=== PATIENT | female | born 1995 | race Caucasian/White ===

== ENCOUNTER 2022-06-15 11:01 | Inpatient (IN) | payer BC ==
[~2022-06-15 11:01] MED LIST: Bupivacaine 0.25% HCL 30 ML VIAL ONE
[2022-06-15] MEDS ORDERED: Ibuprofen 800 MG TAB PO PRN (11:20)
[2022-06-15] MEDS ORDERED: Methylergonovine 0.2 MG/ML VIAL IM PRN (11:20)
[2022-06-15] MEDS ORDERED: Ondansetron PF 4 MG/2 ML Vial IVP PRN ×3 (11:20→17:35)
[2022-06-15] MEDS ORDERED: Diphenoxylate HCl/Atropine Tablet PO PRN (11:20)
[2022-06-15] MEDS ORDERED: Lidocaine 1% (PF) 30 ML VIAL SC PRN (11:20)
[2022-06-15] MEDS ORDERED: Promethazine HCl 25 MG/ML VIAL IM PRN ×2 (11:20→13:58)
[2022-06-15] MEDS ORDERED: Acetaminophen 500 MG TAB PO PRN (11:20)
[2022-06-15] MEDS ORDERED: Butorphanol Tartrate 1 MG/ML VIAL SLOW IVP PRN (11:20)
[2022-06-15] MEDS ORDERED: Misoprostol 200 MCG TAB PR PRN (11:20)
[2022-06-15] MEDS ORDERED: hydrALAZINE 20 MG/ML VIAL SLOW IVP PRN ×2 (11:20→17:35)
[2022-06-15] MEDS ORDERED: HYDROcodone/Acetaminophen 5/325 mg Tablet PO PRN ×3 (11:20→17:35)
[2022-06-15] MEDS ORDERED: Carboprost 250 MCG/ML AMP IM PRN (11:20)
[2022-06-15] MEDS ORDERED: NS w/ Oxytocin 30 units 500 ML IV SCH ×2 (11:30)
[2022-06-15] MEDS ORDERED: Lactated Ringer's 1,000 ML IV SCH (11:30)
[2022-06-15 12:16] LABS: Hemoglobin 11.1 g/dL (12.0-15.5); Mean Corpuscular HGB CONC 33.5 g/dL (32.0-36.0); Mean Corpuscular Hemoglobin 26.2 pg (27.0-33.0); Mean Corpuscular Volume 78.3 fl (81.6-98.3); Mean Platelet Volume 12.3 fl (7.4-10.4); Platelet Count 258 10x3/uL (150-450); Red Blood Cell (RBC) Count 4.23 10x6/uL (3.90-5.03); White Blood Cell (WBC) Count 7.8 10x3/uL (3.5-10.5)
[2022-06-15 12:41] LABS: HBSAg Index 0.16 S/CO (0-0.99); Hep B Surf Ag Non-Reactive S/CO (NonReactive)
[2022-06-15 12:43] VITALS: BMI 29.9
[2022-06-15 12:43] LABS: Syphilis Antibody Nonreactive (Nonreactive); Syphilis Antibody Index 0.02 S/CO (<1.00 Non-Reactive)
[2022-06-15] MEDS ORDERED: Fentanyl 2 mcg/Bup 0.1% Cadd 100 ML ONE (12:49)
[2022-06-15] MEDS ORDERED: diphenhydrAMINE 50 MG/ML VIAL IVP PRN (13:58)
[2022-06-15] MEDS ORDERED: ePHEDrine Sulfate 50 MG/10 ML VIAL SLOW IVP PRN (13:58)
[2022-06-15] MEDS ORDERED: Acetaminophen 325 MG TAB PO PRN (13:58)
[2022-06-15] MEDS ORDERED: Naloxone HCl 0.4 mg/ml Vial IVP PRN ×2 (13:58)
[2022-06-15] MEDS ORDERED: Lactated Ringer's 500 ML IV PRN (13:58)
[2022-06-15] MEDS ORDERED: Moisturizing Cream (Eucerin) 113 GM JAR TOP PRN (13:58)
[2022-06-15] MEDS ORDERED: Fentanyl 2 mcg/Bupivacaine 0.1% Cassette 100 ML EPIDURAL SCH (14:00)
[2022-06-15] MEDS ORDERED: Communication Order-Pharmacy FS SCH (14:00)
[2022-06-15] MEDS ORDERED: Benzocaine-Menthol 82.5 ML CAN TOP PRN (17:35)
[2022-06-15] MEDS ORDERED: Boostrix 0.5 ML (Tdap) VIAL (>/=7 yrs of age) IM ONE (17:35)
[2022-06-15] MEDS ORDERED: Preparation H Ointment 28 GM TUBE PR PRN (17:35)
[2022-06-15] MEDS ORDERED: Bisacodyl 10 MG SUPP PR PRN (17:35)
[2022-06-15] MEDS ORDERED: diphenhydrAMINE 25 MG CAP PO PRN (17:35)
[2022-06-15] MEDS ORDERED: Lanolin Ointment 7 GM TUBE TOP PRN (17:35)
[2022-06-15] MEDS ORDERED: Milk Of Magnesia 30 ML UDCUP PO PRN (17:35)
[2022-06-15] MEDS ORDERED: Ferrous Sulfate 325 MG TAB PO SCH (18:00)
[2022-06-15 20:53] LABS: SARS-CoV-2 NAA Rapid Test Not Detected (NotDetected)
[2022-06-15] MEDS: Docusate 100 MG CAP PO SCH (21:29)
[2022-06-15] MEDS: Ibuprofen 800 MG TAB PO SCH (21:29)
[2022-06-16] MEDS: Ibuprofen 800 MG TAB PO SCH ×2 (05:16→13:26)
[2022-06-16] MEDS: Docusate 100 MG CAP PO SCH (08:03)
[2022-06-16] MEDS: Ferrous Sulfate 325 MG TAB PO SCH ×2 (08:05→14:06)
[2022-06-16] MEDS ORDERED: Prenatal Vitamin 1 TAB PO SCH (09:00)
[2022-06-16 11:31] VITALS: BP 113/79; TEMP 98.2
== END 2022-06-16 18:10 | disposition home or self-care (01) | DRG 807 ==
LOC: CSHLD 11:01 → CSHPP 18:35
PROVIDERS: ADMIT Student in an Organized Health Care Education/Training Program; ATTEND Student in an Organized Health Care Education/Training Program
PROC: 10E0XZZ Delivery of Products of Conception, External Approach (ICD-10-PCS; principal; 2022-06-15)
PROC: 10907ZC Drainage of Amniotic Fluid, Therapeutic from Products of Conception, Via Natural or Artificial Opening (ICD-10-PCS; 2022-06-15)
DX: O69.81X0 Labor and delivery complicated by cord around neck, without compression, not applicable or unspecified (principal); Z37.0 Single live birth; Z3A.39 39 weeks gestation of pregnancy; Z20.822 Contact with and (suspected) exposure to COVID-19; Z90.49 Acquired absence of other specified parts of digestive tract
CPT/HCPCS: 36415; 85027; 86780; 86850; 86900; 86901; 87340; S0020; U0002